=== PATIENT | female | born 1980 | race Caucasian/White ===

== ENCOUNTER 2017-12-13 17:32 | Inpatient (IN) | payer OTHER ==
[~2017-12-13] VITALS: Ht 157.5 cm; Wt 58.5 kg
[~2017-12-13 17:32] MED LIST: ACETAMINOPHEN-1 EAC1 PO; ADULT LOW DOSE81 MG PO; ALLERGY RELIEF10 M3; AMOXICILLIN 50500 MG PO; APIDRA; ATORVASTATIN CA40 MG PO; AUGMENTIN 875875 MG PO; CELEXA 20 MG TA20 M1; CIPROFLOXACIN500 M1 PO; CIPROFLOXACIN500 M3 PO; CRESTOR20 MG PO; DESYREL50 MG; FIORICET 50-321 EACH PO; FLONASE 0.05%50 MCG NASAL; HUMALOG KW100 UNIT/1 SUBQ; IBUPROFEN 800800 M1 PO; IRON325 PO; LANTUS100 UNIT/M SUBQ; LANTUSSOLASTAR; LEVOTHROID150 MC1 PO; LEVOTHYROXINE0.2 M1; LOPRESSOR25 PO; NITROGLYCERIN0.4 MG SUBLING; PENICILLIN V P500 MG; PERCOCET; PERCOCET 5-3251 EACH PO; PRAVACHOL40 MG; PRINIVIL10 MG; PRINIVIL40 MG PO; TRAMADOL 50 MG50 MG PO; TRAZODONE 150150 M1 PO; TRAZODONE HCL100 MG PO; ZANAFLEX4 MG PO; ZANTAC 150MG T150 MG PO; ZOFRAN4 MG PO; ZOLOFT 50 MG TA50 M1 PO
[2017-12-13 17:44] VITALS: BP 168/94
[2017-12-13 18:03] LABS: ABSOLUTE BASOPHILS 0.1 thou/uL (0.0-0.2); ABSOLUTE LYMPHOCYTES 2.1 thou/uL (0.8-5.3); ABSOLUTE MONOCYTES 0.6 thou/uL (0.0-1.2); ABSOLUTE NEUTROPHILS 12.1 thou/uL (1.6-8.1); BASOPHILS 0.5 %; EOSINOPHILS 0.3 %; HEMATOCRIT 45.6 % (37.0-47.0); HEMOGLOBIN 14.7 gm/dL (12.0-15.0); LYMPHOCYTES 13.8 %; MCH 27.5 pg (26.0-34.0); MCHC 32.2 g/dL (28.0-37.0); MCV 85.2 fL (80.0-100.0); MONOCYTES 4.1 %; MPV 9.1 fl. (7.2-11.1); NUCLEATED RBCS 0 /100WBC; PLATELET COUNT* 456 thou/uL (150-400); POLYS 81.3 %; RBC 5.35 mil/uL (4.20-5.00); RDW-CV 16.3 % (10.5-14.5); WBC 14.9 thou/uL (4.0-11.0)
[2017-12-13 18:20] LABS: BUN 20 mg/dL (7-18); CALCIUM 9.2 mg/dL (8.5-10.1); CHLORIDE 88 mmol/L (98-107); CREATININE 1.4 mg/dL (0.6-1.3); POTASSIUM 4.8 mmol/L (3.5-5.1); SODIUM 124 mmol/L (136-145)
[2017-12-13 18:31] LABS: ALBUMIN 3.8 g/dL (3.4-5.0); ALKALINE PHOSPHATASE 281 U/L (46-116); TOTAL BILIRUBIN 0.5 mg/dL (<0.1-1.0); TOTAL PROTEIN 9.7 g/dL (6.4-8.2); TROPONIN-I LEVEL <0.06 ng/mL (<0.06)
[2017-12-13 18:35] LABS: ANION GAP 30 mmol/L (7-16)
[2017-12-13 18:39] LABS: CO2 6 mmol/L (21-32); GLUCOSE 585 mg/dL (70-99)
[2017-12-13 18:49] LABS: SGOT 21 U/L (15-37)
[2017-12-13 18:51] LABS: SGPT 11 U/L (30-65)
[2017-12-13 18:54] LABS: BE -24.7 mmol/L (-2 to +3)
[2017-12-13 18:55] LABS: PCO2 < 17.0 mmHg (35.0-45.0); PO2 149.4 mmHg (75.0-100.0)
[2017-12-13 18:56] LABS: HCO3 3.1 mmol/L (22.0-26.0)
[2017-12-13 21:36] VITALS: BP 131/92
[2017-12-13 22:00] VITALS: BP 148/94
[2017-12-13 22:30] VITALS: BP 158/94
[2017-12-13 22:34] LABS: ALBUMIN 2.9 g/dL (3.4-5.0); CALCIUM 7.6 mg/dL (8.5-10.1); CREATININE 1.1 mg/dL (0.6-1.3); MAGNESIUM 1.5 mg/dL (1.8-2.4); PHOSPHORUS* 2.7 mg/dL (2.5-4.9); POTASSIUM 3.7 mmol/L (3.5-5.1)
[2017-12-13 23:00] VITALS: BP 145/93
[2017-12-14] VITALS (23 sets, daily range): BP systolic 108–146; BP diastolic 65–91
[2017-12-14 02:24] LABS: ALBUMIN 2.8 g/dL (3.4-5.0); CALCIUM 7.6 mg/dL (8.5-10.1); CREATININE 1.1 mg/dL (0.6-1.3); MAGNESIUM 1.6 mg/dL (1.8-2.4); POTASSIUM 3.5 mmol/L (3.5-5.1)
[2017-12-14 06:30] LABS: ALBUMIN 2.7 g/dL (3.4-5.0); CALCIUM 7.6 mg/dL (8.5-10.1); MAGNESIUM 1.6 mg/dL (1.8-2.4); PHOSPHORUS* 1.7 mg/dL (2.5-4.9); POTASSIUM 3.3 mmol/L (3.5-5.1)
[2017-12-14 10:27] LABS: ALBUMIN 2.5 g/dL (3.4-5.0); CALCIUM 7.5 mg/dL (8.5-10.1); MAGNESIUM 1.5 mg/dL (1.8-2.4)
[2017-12-14 10:32] LABS: POTASSIUM 4.3 mmol/L (3.5-5.1)
[2017-12-14 13:49] LABS: URINE BILIRUBIN NEGATIVE (Negative); URINE BLOOD TRACE (Negative); URINE CLARITY CLEAR; URINE COLOR YELLOW; URINE GLUCOSE-RANDOM 2+ (Negative); URINE KETONES 1+ (Negative); URINE NITRITE-REFLEX NEGATIVE (Negative); URINE PROTEIN 1+ (Negative); URINE SPECIFIC GRAVITY 1.015 (1.005-1.030); URINE UROBILINOGEN 0.2 E.U./dl (0.2-1.0)
[2017-12-14 13:50] LABS: URINE LEUKOCYTES-REFLEX 2+ (Negative)
[2017-12-14 14:09] LABS: SQUAMOUS 4-10 Moderate /LPF (0-3)
[2017-12-14 14:10] LABS: BACTERIA-REFLEX 1-9 Few /HPF (None Seen); CASTS None Seen /LPF (None Seen); CRYSTALS None Seen /LPF (None Seen); URINE RBC 3-10 Few /HPF (0-2)
--- NOTE | 2017-12-14 14:51 | EKG ---
[place] [address] ELECTROCARDIOGRAM REPORT Name: ERASTO CULVER Room: [address] ADM IN .R.#: [id number] Admission: 12/13/17 Attend Phys: Jasson Rosario MD Discharge: Date of : 80 Report #: [id number] THIS REPORT FOR: //name// [facility] ED Test Date: 2017-12-13 Test Time: 17:45:20 Pat Name: ERASTO CULVER Department: Room: [facility] Gender: F Manager Voice: TERESA : 1980 Requested By: Jaye Moore Order Number: [id number] MD: Everett Morales Measurements Intervals Eros Rate: 136 P: 72 VT: 143 QRS: -16 QRSD: 78 T: QT: 305 QTc: 459 Interpretive Statements Sinus tachycardia LAE, consider biatrial enlargement Borderline left axis deviation Anteroseptal infarct, old Compared to ECG 10/17/2016 22:03:41 Sinus rhythm no longer present Myocardial infarct finding still present Electronically Signed On 12-14-2017 14:51:37 CDT by Everett Morales [email or web address] <ELECTRONICALLY SIGNED> By: Everett Morales MD, FAC 12/14/17 1451 1745 1745 Everett Morales MD, FAC /EPI
[2017-12-14 15:59] LABS: ALBUMIN 2.4 g/dL (3.4-5.0); CALCIUM 7.6 mg/dL (8.5-10.1); CREATININE 0.9 mg/dL (0.6-1.3); PHOSPHORUS* 1.3 mg/dL (2.5-4.9); POTASSIUM 3.6 mmol/L (3.5-5.1)
[2017-12-14 20:47] LABS: ALBUMIN 2.3 g/dL (3.4-5.0); ALKALINE PHOSPHATASE 174 U/L (46-116); ANION GAP 11 mmol/L (7-16); BUN 8 mg/dL (7-18); CALCIUM 7.5 mg/dL (8.5-10.1); CHLORIDE 110 mmol/L (98-107); CO2 19 mmol/L (21-32); CREATININE 1.1 mg/dL (0.6-1.3); GLUCOSE 105 mg/dL (70-99); POTASSIUM 3.1 mmol/L (3.5-5.1); SGOT 24 U/L (15-37); SGPT 14 U/L (30-65); SODIUM 140 mmol/L (136-145); TOTAL BILIRUBIN 0.1 mg/dL (<0.1-1.0); TOTAL PROTEIN 6.3 g/dL (6.4-8.2); TROPONIN-I LEVEL <0.06 ng/mL (<0.06)
[2017-12-15] VITALS (11 sets, daily range): BP systolic 113–140; BP diastolic 62–99
[2017-12-15 03:47] LABS: ABSOLUTE EOSINOPHILS 0.1 thou/uL (0.0-0.7); ABSOLUTE LYMPHOCYTES 1.1 thou/uL (0.8-5.3); ABSOLUTE MONOCYTES 0.4 thou/uL (0.0-1.2); ABSOLUTE NEUTROPHILS 2.9 thou/uL (1.6-8.1); BASOPHILS 0.6 %; EOSINOPHILS 1.5 %; HEMATOCRIT 30.3 % (37.0-47.0); LYMPHOCYTES 24.1 %; MCH 27.8 pg (26.0-34.0); MCHC 33.5 g/dL (28.0-37.0); MCV 82.8 fL (80.0-100.0); MONOCYTES 9.8 %; MPV 8.4 fl. (7.2-11.1); NUCLEATED RBCS 0 /100WBC; RBC 3.65 mil/uL (4.20-5.00); RDW-CV 16.8 % (10.5-14.5); WBC 4.6 thou/uL (4.0-11.0)
[2017-12-15 03:56] LABS: HEMOGLOBIN 10.1 gm/dL (12.0-15.0); PLATELET COUNT* 183 thou/uL (150-400)
[2017-12-15 06:27] LABS: ALBUMIN 2.2 g/dL (3.4-5.0); CALCIUM 7.5 mg/dL (8.5-10.1); CREATININE 0.9 mg/dL (0.6-1.3); TOTAL BILIRUBIN 0.1 mg/dL (<0.1-1.0); TOTAL PROTEIN 5.4 g/dL (6.4-8.2)
[2017-12-15 06:29] LABS: POTASSIUM 4.2 mmol/L (3.5-5.1)
[2017-12-15] MEDS ORDERED: LEVAQUIN 500 M500 M2 PO (12:00)
== END 2017-12-15 12:35 | disposition home or self-care (01) | DRG 638 ==
LOC: M.ERS 17:32 → M.TBA-ER 19:40 → M.ICU 19:40
PROVIDERS: Internal Medicine; Nurse Practitioner Family; ADMIT Internal Medicine
PROC: 02H633Z Insertion of Infusion Device into Right Atrium, Percutaneous Approach (ICD-10-PCS; principal; 2017-12-13)
DX: E10.10 Type 1 diabetes mellitus with ketoacidosis without coma (principal); N39.0 Urinary tract infection, site not specified; E78.5 Hyperlipidemia, unspecified; E03.9 Hypothyroidism, unspecified; F32.9 Major depressive disorder, single episode, unspecified; Z98.891 History of uterine scar from previous surgery; Z90.49 Acquired absence of other specified parts of digestive tract; Z90.710 Acquired absence of both cervix and uterus; Z79.82 Long term (current) use of aspirin; Z79.4 Long term (current) use of insulin; Z79.899 Other long term (current) drug therapy; Z88.2 Allergy status to sulfonamides; Z88.5 Allergy status to narcotic agent; Z88.8 Allergy status to other drugs, medicaments and biological substances; Z82.49 Family history of ischemic heart disease and other diseases of the circulatory system; Z83.3 Family history of diabetes mellitus; Z80.3 Family history of malignant neoplasm of breast

== ENCOUNTER 2018-02-03 11:24 | Inpatient (IN) | payer OTHER ==
[~2018-02-03] VITALS: Ht 157.5 cm; Wt 66.7 kg
[2018-02-03] VITALS (8 sets, daily range): BP systolic 88–157; BP diastolic 58–92
[~2018-02-03 11:24] MED LIST changes: +LEVAQUIN 500 M500 M2 PO
[2018-02-03 11:57] LABS: URINE BILIRUBIN NEGATIVE (Negative); URINE BLOOD NEGATIVE (Negative); URINE CLARITY CLEAR; URINE COLOR YELLOW; URINE GLUCOSE-RANDOM 3+ (Negative); URINE LEUKOCYTES-REFLEX NEGATIVE (Negative); URINE NITRITE-REFLEX NEGATIVE (Negative); URINE PROTEIN TRACE (Negative); URINE UROBILINOGEN 0.2 E.U./dl (0.2-1.0)
[2018-02-03 12:01] LABS: ACETEST (KETONE CONFIRMATORY) Large (Negative); URINE KETONES 3+ (Negative)
[2018-02-03 12:01] LABS: PCO2 21.2 mmHg (35.0-45.0); PO2 115.7 mmHg (75.0-100.0)
[2018-02-03 12:03] LABS: HCO3 9.6 mmol/L (22.0-26.0); pH 7.276 (7.340-7.450)
[2018-02-03 12:18] LABS: ABSOLUTE LYMPHOCYTES 1.3 thou/uL (0.8-5.3); ABSOLUTE MONOCYTES 0.4 thou/uL (0.0-1.2); ABSOLUTE NEUTROPHILS 4.6 thou/uL (1.6-8.1); BASOPHILS 0.4 %; EOSINOPHILS 0.5 %; HEMATOCRIT 41.2 % (37.0-47.0); HEMOGLOBIN 13.2 gm/dL (12.0-15.0); LYMPHOCYTES 20.2 %; MCH 28.3 pg (26.0-34.0); MCV 88.4 fL (80.0-100.0); MONOCYTES 5.7 %; MPV 9.3 fl. (7.2-11.1); NUCLEATED RBCS 0 /100WBC; PLATELET COUNT* 320 thou/uL (150-400); POLYS 73.2 %; RBC 4.66 mil/uL (4.20-5.00); RDW-CV 14.2 % (10.5-14.5); WBC 6.3 thou/uL (4.0-11.0)
[2018-02-03 12:49] LABS: CALCIUM 8.9 mg/dL (8.5-10.1); CREATININE 1.3 mg/dL (0.6-1.3); POTASSIUM 4.1 mmol/L (3.5-5.1)
[2018-02-03 13:27] LABS: ALBUMIN 3.5 g/dL (3.4-5.0); MAGNESIUM 1.8 mg/dL (1.8-2.4); TOTAL BILIRUBIN 0.5 mg/dL (<0.1-1.0); TOTAL PROTEIN 8.8 g/dL (6.4-8.2)
[2018-02-03 16:23] LABS: ALBUMIN 3.2 g/dL (3.4-5.0); CALCIUM 8.7 mg/dL (8.5-10.1); CREATININE 1.1 mg/dL (0.6-1.3); MAGNESIUM 1.7 mg/dL (1.8-2.4); POTASSIUM 3.3 mmol/L (3.5-5.1)
--- NOTE | 2018-02-03 17:45 | NUR ---
PT ARRIVED TO ICU THIS AFTERNOON. VSS. AFEBRILE. ALERT AND ORIENTED X4. PT DENIES PAIN AND NAUSEA. GOALS FOR TODAY INCLUDE WEANING INSULIN GTT AND MAINTAINING STABLE VS.
[2018-02-03 21:51] LABS: ALBUMIN 3.1 g/dL (3.4-5.0); CALCIUM 8.2 mg/dL (8.5-10.1); CREATININE 0.9 mg/dL (0.6-1.3); MAGNESIUM 1.5 mg/dL (1.8-2.4); PHOSPHORUS* 2.2 mg/dL (2.5-4.9); POTASSIUM 3.8 mmol/L (3.5-5.1)
[2018-02-04] VITALS (12 sets, daily range): BP systolic 86–137; BP diastolic 44–84
[2018-02-04 04:29] LABS: HEMATOCRIT 35.2 % (37.0-47.0); HEMOGLOBIN 11.9 gm/dL (12.0-15.0); MCH 28.6 pg (26.0-34.0); MCHC 33.7 g/dL (28.0-37.0); MCV 84.8 fL (80.0-100.0); MPV 8.1 fl. (7.2-11.1); RBC 4.15 mil/uL (4.20-5.00); RDW-CV 14.3 % (10.5-14.5); WBC 5.6 thou/uL (4.0-11.0)
[2018-02-04 05:32] LABS: CREATININE 0.9 mg/dL (0.6-1.3); POTASSIUM 3.9 mmol/L (3.5-5.1)
[2018-02-04 05:33] LABS: ALBUMIN 2.9 g/dL (3.4-5.0); CALCIUM 8.4 mg/dL (8.5-10.1); MAGNESIUM 2.3 mg/dL (1.8-2.4); PHOSPHORUS* 2.5 mg/dL (2.5-4.9); TOTAL BILIRUBIN 0.1 mg/dL (<0.1-1.0); TOTAL PROTEIN 7.3 g/dL (6.4-8.2)
[2018-02-04 06:04] LABS: BE -6.2 mmol/L (-2 to +3); HCO3 19.6 mmol/L (22.0-26.0); PCO2 39.7 mmHg (35.0-45.0); PO2 99.5 mmHg (75.0-100.0); pH 7.311 (7.340-7.450)
--- NOTE | 2018-02-04 07:35 | NUR ---
Pt's BG mid 200s toward beginning of shift. Insulin gtt increased gradually, then decreased gradually throughout shift. Latest BG 106 with insulin gtt infusing at 1 unit/hour. Medicated twice overnight for c/o of pain to lower back, rating 8/10. Reports complete pain relief afterwards. Otherwise no complaints. VSS throughout most of shift, though BP 80s/40s this am. Pt asymptomatic. Pt hoping to be off insulin gtt soon and be able to eat. Will continue to monitor.
--- NOTE | 2018-02-04 10:52 | NUR ---
ASSUMED PT CARE 0730. PT A/O X'S 4. BP 80'S/40'S. PT SAT UP AND RECHECKED BP AND IT WAS SYSTOLIC 108. HR 70'S. HELD METOPROLOL. WILL CONTINUE TO MONITOR. DISCUSSED WITH PT PLAN OF CARE AND PT AGREED. PT AFEBRILE. PT STATES SHE WANTS TO EAT. PT GIVEN ORAL FLUIDS AND CRACKERS. PER DR, PT TO EAT BREAKFAST. PT ATE 80% OF BREAKFAST. PT C/O OF LOWER BACK PAIN. PT REPORTS SHE HAS MIDDLE BACK PAIN AT HOME. PT FIRST GIVEN PO HYDROCODONE. PT RATED PAIN 7/10 PRIOR TO MEDICATION AND AT REASSESSMENT. PT THEN GIVEN PRN IV FENTANYL. DKA PROTOCOL DC'D PER DR DANIELS. PT UP SELF TO COMMODE. PT VOIDED. WILL CONTINUE PLAN OF CARE.
--- NOTE | 2018-02-04 11:32 | NUR ---
INTERDISCIPLINARY ROUNDS: PT.IS TELE STATUS NOW. SHE WAS ALERT ND ORIENTED. MOM AND SON AT BEDSIDE. LIVES WITH HER AND CHILDREN. MOTHER IS VERY SUPPORTIVE WELL. PT.WORKS OUTSIDE THE HOME. SHE SAID AFTER 60 DAYS OF EMPLOYMENT SHE SHOULD BE ABLE TO GET INSURANCE. SHE HAS BEEN AT HER JOB FOR ABOUT 30 DAYS. DOES NOT HAVE INSURANCE AT HIS JOB. THEY DO NOT QUALIFY FOR MEDICAID. SHE SAID THEY MAKE TOO MUCH MONEY. THEIR CHILDREN, AGES 14 AND 5, ARE ON MEDICAID. PT. SAID SHE HAS A GLUCOMETER AND TRYS TO CHECK HER BLOOD SUGAR DAILY. SHE REPORTED SHE HADN'T CHECKED IT IN A WEEK IN THE ER. SHE GETS HER DIABETIC SUPPLIES,REG.AND NPH INSULIN AT [facility]. STRESSED IMPORTANCE OF KEEPING GLUCOSE IN CONTROL. SHE SEES YAHAIRA CHEUNG AT [facility]. CM WILL ASSIST NEEDED.
--- NOTE | 2018-02-04 14:08 | NUR ---
PT TRANSFERRED TO ROOM 200 FROM ICU VIA WHEELCHAIR AT APPROXIMATELY 1320. REPORT RECEIVED FROM TREVOR MASTERS. THIS RN AGREES WITH PREVIOUS OPERATOR GROUND BASED AIR DEFENCE. PT A&0X4, DENIES ANY PAIN OR SHORTNESS OF BREATH AT THIS TIME. PT TRACING SR ON THE INDUSTRIAL CONVEYOR BELT REPAIRER. ON RA SAT UPPER 90'S. IVF. PT UP AD PAVEL IN ROOM. PT DENIES ANY NEEDS OR CONCERNS AT THIS TIME. MEDICATIONS PER MAR. PT REPOSITIONS SELF. HOURLY ROUNDING OBSERVED. BED IN LOW POSITION. CALL LIGHT WITHIN REACH. WILL CONTINUE PLAN OF CARE.
--- NOTE | 2018-02-04 17:17 | NUR ---
NO ACUTE CHANGES THROUGHOUT AFTERNOON. PT COMPLAINED OF PAIN TO LOWER BACK-TREATED WITH PRN HYDROCODONE WITH RELIEF. FAMILY AT BEDSIDE THIS AFTERNOON. PT CONTINUES TO TRACE SR ON THE ENGRAVER HAND HARD METALS. ON RA SAT UPPER 90'S. DENIES ANY SHORTNESS OF BREATH. IVF. PT UP AD PAVEL IN ROOM. BLOOD SUGAR 238 AT DINNER-10 UNITS INSULIN GIVEN PER SLIDING SCALE. REFER TO EMAR. PT PROGRESSING TOWARDS GOALS. PT REPOSITIONS SELF. HOURLY ROUNDING OBSERVED. BED IN LOW POSITION. CALL LIGHT WITHIN REACH. WILL CONTINUE PLAN OF CARE.
[2018-02-05] VITALS: BP 103/62
[2018-02-05 04:00] VITALS: BP 107/56
--- NOTE | 2018-02-05 04:24 | NUR ---
Assumed care of patient at 1930. Patient slept well throughout the night. Full assessment completed and documented; hourly rounding performed for patient's safety. Lower back pain controlled with PRN medications. Patient is A&O x4; up ad reece in room. SR noted on telemetry. All VSS. IVL infusing. Patient is progressing well toward goals. Call light within reach at all times. Will continue to monitor.
[2018-02-05 05:09] LABS: HEMATOCRIT 31.5 % (37.0-47.0); HEMOGLOBIN 10.6 gm/dL (12.0-15.0); MCH 28.7 pg (26.0-34.0); MCHC 33.6 g/dL (28.0-37.0); MCV 85.3 fL (80.0-100.0); RBC 3.7 mil/uL (4.20-5.00); RDW-CV 14.8 % (10.5-14.5); WBC 4.2 thou/uL (4.0-11.0)
[2018-02-05 06:04] LABS: ALBUMIN 2.4 g/dL (3.4-5.0); CALCIUM 7.7 mg/dL (8.5-10.1); CREATININE 0.7 mg/dL (0.6-1.3); MAGNESIUM 1.6 mg/dL (1.8-2.4); POTASSIUM 4.1 mmol/L (3.5-5.1); TOTAL BILIRUBIN 0.2 mg/dL (<0.1-1.0); TOTAL PROTEIN 5.8 g/dL (6.4-8.2)
[2018-02-05 08:00] VITALS: BP 119/71
--- NOTE | 2018-02-05 10:37 | NUR ---
ASSUMED CARE OF PT AT 0730. PT RESTING IN BED WAITING FOR BREAKFAST. PT FAMILY AT BEDSIDE. A&0X4, DENIES ANY PAIN OR SHORTNESS OF BREATH AT THIS TIME. PT BLOOD GLUCOSE 412 THIS AM- 20 UNITS SSI GIVEN PER EMAR. PT TRACING SR ON THE MEDICAL DELIVERY TECHNICIAN. ON RA SAT UPPER 90'S. IVF. PT UP AD PAVEL IN ROOM. PT GOAL FOR TODAY IS PAIN MGMT, MAINTAIN BLOOD GLUCOSE BELOW 200, INCREASE ACTIVITY AND REPLACE MAGNESIUM PER ELECTROLYTE PROTOCOL. AM ASSESSMENT CHARTED. MEDICATIONS PER JUN. PT REPOSITIONS SELF. HOURLY ROUNDING OBSERVED. BED IN LOW POSITION. CALL LIGHT WITHIN REACH. WILL CONTINUE PLAN OF CARE.
[2018-02-05 12:04] VITALS: BP 129/80
--- NOTE | 2018-02-05 16:42 | NUR ---
NO ACUTE CHANGES THROUGHOUT SHIFT. REFER TO CHARTING. PT COMPLAINED OF PAIN TO BACK-TREATED WITH PRN HYDROCODONE WITH PARTIAL RELIEF, TREATED WITH PRN FENTANYL WITH COMPLETE RELIEF. PT PROGRESSING TOWARDS GOALS. BLOOD SUGARS BETTER THIS AFTERNOON. DR WATKINS HERE TO SEE PT-ORDERS RECEIVED FOR LONG ACTING INSULING STARTING TONIGHT. PT CONTINUES TO TRACE SR ON THE DIRECTOR TRADE. ON RA SAT UPPER 90'S. PT UP AD PAVEL IN ROOM. IVF. MAGNESIUM BEING REPLACED PER ELECTROLYTE PROTOCOL. MEDICATIONS PER JUN. PT REPOSITIONS SELF. HOURLY ROUNDING OBSERVED. BED IN LOW POSITION. CALL LIGHT WITHIN REACH. WILL CONTINUE PLAN OF CARE.
[2018-02-05 17:00] VITALS: BP 120/65
[2018-02-05 18:54] LABS: URINE BILIRUBIN NEGATIVE (Negative); URINE BLOOD NEGATIVE (Negative); URINE CLARITY CLEAR; URINE COLOR YELLOW; URINE GLUCOSE-RANDOM 3+ (Negative); URINE KETONES NEGATIVE (Negative); URINE LEUKOCYTES-REFLEX NEGATIVE (Negative); URINE NITRITE-REFLEX NEGATIVE (Negative); URINE PROTEIN NEGATIVE (Negative); URINE UROBILINOGEN 0.2 E.U./dl (0.2-1.0)
[2018-02-05 20:14] VITALS: BP 153/92
[2018-02-06 02:02] VITALS: BP 113/60
--- NOTE | 2018-02-06 02:58 | NUR ---
RECEIVED REPORT AND ASSUMED CARE AT 1900. VSS. CARDIAC MONITORING IN PLACE. ASSESSMENT COMPLETED CHARTED. DISCUSSED PLAN OF CARE WITH PT, VERBALIZED UNDERSTANDING. MEDICATION ADMIN PER EMAR. PT REPORTED LOWER BACK PAIN. PRN MEDICATIN ADMIN PER ORDERS. PT UP AD PAVEL IN ROOM, ON RA. BED LOCKED IN LOWEST POSITION, CALL LIGHT WITHIN REACH. NURSING WILL CONTINUE TO MONITOR
[2018-02-06 04:40] VITALS: BP 114/59
[2018-02-06 04:49] LABS: HEMATOCRIT 28.2 % (37.0-47.0); HEMOGLOBIN 9.4 gm/dL (12.0-15.0); MCH 28.3 pg (26.0-34.0); MCHC 33.3 g/dL (28.0-37.0); RBC 3.31 mil/uL (4.20-5.00); RDW-CV 14.6 % (10.5-14.5); WBC 3.3 thou/uL (4.0-11.0)
[2018-02-06 05:01] LABS: CALCIUM 7.6 mg/dL (8.5-10.1); CREATININE 0.6 mg/dL (0.6-1.3); MAGNESIUM 1.5 mg/dL (1.8-2.4); POTASSIUM 3.7 mmol/L (3.5-5.1)
--- NOTE | 2018-02-06 05:50 | NUR ---
ASSUMED CARE APROX 0500. AGREE WITH PREVIOUS NURSE ASSESSMENT.
[2018-02-06 08:16] VITALS: BP 122/71
[2018-02-06 12:00] VITALS: BP 157/84
[2018-02-06 16:00] VITALS: BP 145/79
--- NOTE | 2018-02-06 18:22 | NUR ---
ASSUMED CARE OF PT AT 0730.PT REMAINS A&O X4 CALM AND COOPERATIVE. PT VSS ON ROOM AIR AND TRACING SR ON THE MONITOR. PT C/O BACK PAIN CONTROLLED WITH PRN MEDS PER JUN. PT UP AD PAVEL AND HAS A GOOD APPETITE, EATING GREATER THAN 75% OF ALL MEALS TODAY. HOURLY ROUNDING COMPLETED FOR PT COMFORT AND SAFTEY. NURSING WILL CONTINUE TO MONITOR.
[2018-02-06 19:40] VITALS: BP 120/74
[2018-02-07] VITALS: BP 126/84
[2018-02-07 00:17] VITALS: BP 145/85
[2018-02-07 04:00] VITALS: BP 128/72
--- NOTE | 2018-02-07 04:12 | NUR ---
END SHIFT: PT RESTED WELL. NO COMPLAINTS. NO PAIN. TOLERATING INCREASE IN INSULIN WELL. PT IS UP WALKING HALLS. NSR ON MONITOR. AWAITING D/C TODAY. ASSESSMENT UNCHANGED. VSS. SAFETY PRECAUTIONS IN PLACE. CALL LIGHT IN REACH. PERFORMED HOURLY ROUNDING. WILL CONT TO MONITOR.
[2018-02-07 04:25] LABS: HEMATOCRIT 31.5 % (37.0-47.0); HEMOGLOBIN 10.4 gm/dL (12.0-15.0); MCH 28.1 pg (26.0-34.0); MCHC 33.2 g/dL (28.0-37.0); MCV 84.6 fL (80.0-100.0); RBC 3.72 mil/uL (4.20-5.00); RDW-CV 14.8 % (10.5-14.5); WBC 3.5 thou/uL (4.0-11.0)
[2018-02-07 04:35] LABS: CALCIUM 8.2 mg/dL (8.5-10.1); CREATININE 0.6 mg/dL (0.6-1.3); MAGNESIUM 1.8 mg/dL (1.8-2.4); POTASSIUM 3.5 mmol/L (3.5-5.1)
[2018-02-07 07:20] VITALS: BP 125/71
[2018-02-07] MEDS ORDERED: LEVOTHYROXINE150 MCG PO (09:26)
[2018-02-07] MEDS ORDERED: HUMULINR100 SUBQ (10:01)
[2018-02-07] MEDS ORDERED: HUMULIN N100 UNIT/1 SUBQ (10:23)
[2018-02-07 11:47] VITALS: BP 126/73
--- NOTE | 2018-02-07 12:02 | NUR ---
Dr to switch Pt back to NPH today, anticipate dc tomorrow.
--- NOTE | 2018-02-07 12:15 | NUR ---
Nutrition: Consult received for "uncontrolled DM." Pt was sitting in chair during visit. Likely discharging home today. Has Had IDDM x25 yrs. Eating >75% of meals, CHO count diet. Wt is stable 147#. Pt denied any needs, politely refused DM education. No other nutrition interventions needed today. Low risk.
--- NOTE | 2018-02-07 19:33 | NUR ---
PATIENT PROGRESSING TOWARDS GOALS. TOLERATING DIET WELL WITHOUT NAUSEA OR VOMITING. ADJUSTED INSULIN BASED ON PATIENTS HOME REGIMINE. UP AD PAVEL IN ROOM WITH BATHROOM PRIVILEDGES. HER GAIT IS STEADY. REPLACING MAG/K PER PROTOCOL. PLANNING FOR DC TOMORROW IF GLUCOSE STABLE. HOURLY ROUNDING CHARTED. CALL LIGHT WITHIN REACH. WILL CONTINUE TO MONITOR.
[2018-02-07 19:35] VITALS: BP 124/70
[2018-02-07 23:10] LABS: GLYCOHEMOGLOBIN (HGB A1C) 15.2 % (4.8-5.6)
[2018-02-08] VITALS: BP 138/70
--- NOTE | 2018-02-08 04:34 | NUR ---
END SHIFT: PT RESTED WELL. C/O PAIN IN BILAT LOWER LEGS AND FEET RELIEVED WITH PAIN MEDICATION. ASSESSMENT UNCHANGED. VSS. AWAITING DC HOME TODAY. PROGRESSING TOWARDS GOALS. SAFETY PRECAUTIONS IN PLACE. CALL LIGHT IN REACH. PERFORMED HOURLY ROUNDING. WILL CONT TO MONITOR.
--- NOTE | 2018-02-08 06:52 | NUR ---
ANOTHER DOSE OF TYLENOL GIVEN AT 0600 THIS AM FOR TEMPT OF 101. PT FEER SEEMS TO COME AND GO. IV ABX HANGED, IV FLID INFUSING AT 150 /HR. PT SKIN IS WARM TO TOUVH. HR IS DOWN TO THE 90S.
[2018-02-08 08:00] VITALS: BP 116/60
--- NOTE | 2018-02-08 11:20 | NUR ---
ASSUMED CARE OF PATIENT THIS AM AT 0730. PATIENT IS ALERT AND ORIENTED X 4. SHE DENIES PAIN AND DISCOMFORT. FSBS MONITORED AND INSULIN GIVEN PER ORDER. PATIENT IS TAKING HER DIET WELL. PATIENT ANTICIPATES DISCHARGE WHEN DR ROUNDS.
[2018-02-08 11:37] VITALS: BP 172/54
[2018-02-08] MEDS ORDERED: HUMULIN N100 UNIT/1 SUBQ (12:06)
[2018-02-08] MEDS ORDERED: HUMALOG KW100 UNIT/1 SUBQ (12:06)
[2018-02-08 13:50] VITALS: BP 116/60
== END 2018-02-08 15:00 | disposition home or self-care (01) | DRG 639 ==
LOC: M.ERS 11:24 → M.ICU 13:51 → M.TBA-ER 13:51 → M.ICU 15:35 → M.2W 02-04 13:08
PROVIDERS: Family Medicine; Personal Emergency Response Attendant; ADMIT Internal Medicine
DX: E10.10 Type 1 diabetes mellitus with ketoacidosis without coma (principal); E03.9 Hypothyroidism, unspecified; E78.5 Hyperlipidemia, unspecified; F32.9 Major depressive disorder, single episode, unspecified; E87.8 Other disorders of electrolyte and fluid balance, not elsewhere classified; E83.42 Hypomagnesemia; Z98.891 History of uterine scar from previous surgery; Z90.49 Acquired absence of other specified parts of digestive tract; Z90.710 Acquired absence of both cervix and uterus; Z79.4 Long term (current) use of insulin; Z79.899 Other long term (current) drug therapy; Z88.2 Allergy status to sulfonamides; Z88.5 Allergy status to narcotic agent; Z88.8 Allergy status to other drugs, medicaments and biological substances; Z82.49 Family history of ischemic heart disease and other diseases of the circulatory system; Z83.3 Family history of diabetes mellitus; Z80.3 Family history of malignant neoplasm of breast; Z23 Encounter for immunization

== ENCOUNTER 2019-01-16 16:00 | Emergency (ER) | payer OTHER ==
[~2019-01-16] VITALS: Ht 157.5 cm; Wt 66.7 kg
[~2019-01-16 16:00] MED LIST changes: +HUMULIN N100 UNIT/1 SUBQ; +HUMULINR100 SUBQ; +LEVOTHYROXINE150 MCG PO
[2019-01-16 17:34] LABS: ABSOLUTE EOSINOPHILS 0.1 thou/uL (0.0-0.7); ABSOLUTE LYMPHOCYTES 1.7 thou/uL (0.8-5.3); ABSOLUTE MONOCYTES 0.6 thou/uL (0.0-1.2); ABSOLUTE NEUTROPHILS 3.9 thou/uL (1.6-8.1); BASOPHILS 0.7 %; EOSINOPHILS 1.4 %; HEMATOCRIT 36.1 % (37.0-47.0); HEMOGLOBIN 11.8 gm/dL (12.0-15.0); MCH 25.5 pg (26.0-34.0); MCHC 32.8 g/dL (28.0-37.0); MCV 77.7 fL (80.0-100.0); MONOCYTES 9.5 %; MPV 8.2 fl. (7.2-11.1); NUCLEATED RBCS 0 /100WBC; PLATELET COUNT* 314 thou/uL (150-400); POLYS 61.4 %; RBC 4.64 mil/uL (4.20-5.00); RDW-CV 14.1 % (10.5-14.5); WBC 6.4 thou/uL (4.0-11.0)
[2019-01-16 17:43] LABS: ANION GAP 21 mmol/L (7-16); BUN 20 mg/dL (7-18); CALCIUM 9.6 mg/dL (8.5-10.1); CHLORIDE 91 mmol/L (98-107); CO2 17 mmol/L (21-32); GLUCOSE 383 mg/dL (70-99); POTASSIUM 4.6 mmol/L (3.5-5.1); SODIUM 129 mmol/L (136-145)
[2019-01-16] MEDS ORDERED: IMDUR 30 MG TAB30 M1 PO (17:53)
[2019-01-16] MEDS ORDERED: NEURONTIN 300300 M1 PO (17:53)
[2019-01-16] MEDS ORDERED: LEVEMIR FL100 UNIT/2 SUBQ (17:54)
[2019-01-16 17:56] LABS: TROPONIN-I LEVEL <0.06 ng/mL (<0.06)
[2019-01-16 18:02] LABS: URINE BILIRUBIN NEGATIVE (Negative); URINE BLOOD TRACE (Negative); URINE CLARITY CLEAR; URINE COLOR YELLOW; URINE GLUCOSE-RANDOM 2+ (Negative); URINE LEUKOCYTES-REFLEX NEGATIVE (Negative); URINE NITRITE-REFLEX NEGATIVE (Negative); URINE PROTEIN 2+ (Negative); URINE UROBILINOGEN 0.2 E.U./dl (0.2-1.0)
[2019-01-16 18:03] LABS: URINE KETONES 3+ (Negative)
[2019-01-16 18:13] LABS: BACTERIA-REFLEX >30 Many /HPF (None Seen); SQUAMOUS >10 Many /LPF (0-3)
[2019-01-16 18:14] LABS: URINE RBC 0-2 Rare /HPF (0-2)
[2019-01-16 18:15] LABS: CASTS None Seen /LPF (None Seen); CRYSTALS None Seen /LPF (None Seen); MUCUS None Seen strn/LPF (None Seen); YEAST-REFLEX Present (None Seen)
[2019-01-16 18:16] LABS: URINE WBC-REFLEX 6-15 Few /HPF (0-5)
[2019-01-16 19:27] LABS: BE -9.3 mmol/L (-2 to +3); PO2 98.4 mmHg (75.0-100.0); pH 7.354 (7.340-7.450)
[2019-01-16] MEDS ORDERED: ONDANSETRON HCL4 M2 PO (19:39)
[2019-01-16] MEDS ORDERED: DIFLUCAN150 M1 PO (19:39)
[2019-01-16] MEDS ORDERED: NORCO 5-325 TA1 EAC1 PO (20:00)
[2019-01-16 20:17] VITALS: BP 125/85
--- NOTE | 2019-01-17 09:31 | EKG ---
[place] [address] ELECTROCARDIOGRAM REPORT Name: ERASTO CULVER Room: [facility]#: [id number] Admission: 01/16/19 Attend Phys: Discharge: 01/16/19 Date of : 80 Report #: [id number] THIS REPORT FOR: //name// [facility] ED Test Date: 2019-01-16 Test Time: 16:14:06 Pat Name: ERASTO CULVER Department: Room: Gender: F Fur Buyer: JOSÉ LUIS : 1980 Requested By: Sara Stockton Order Number: [id number] MD: Everett Morales Measurements Intervals [place] Rate: 111 P: 49 NH: 136 QRS: -32 QRSD: 85 T: 20 QT: 322 QTc: 438 Interpretive Statements Sinus tachycardia Left axis deviation Abnormal R-wave progression, late transition Compared to ECG 12/13/2017 17:45:20 Changes noted Electronically Signed On 01-17-2019 9:31:45 CDT by Everett Morales [email or web address] <ELECTRONICALLY SIGNED> By: Everett Morales MD, [facility] 01/17/19 0931 1614 1614 Everett Morales MD, [facility] /EPI
== END 2019-01-16 20:18 | disposition home or self-care (01) ==
LOC: M.ERS 16:00
PROVIDERS: Nurse Practitioner Family
DX: E10.65 Type 1 diabetes mellitus with hyperglycemia (principal); N39.0 Urinary tract infection, site not specified; R07.89 Other chest pain; E78.5 Hyperlipidemia, unspecified; E03.9 Hypothyroidism, unspecified; F32.9 Major depressive disorder, single episode, unspecified; Z95.5 Presence of coronary angioplasty implant and graft; Z88.2 Allergy status to sulfonamides; Z98.890 Other specified postprocedural states; Z90.49 Acquired absence of other specified parts of digestive tract; Z90.710 Acquired absence of both cervix and uterus; Z88.1 Allergy status to other antibiotic agents; Z88.8 Allergy status to other drugs, medicaments and biological substances

== ENCOUNTER 2019-05-08 11:03 | Inpatient (IN) | payer OTHER ==
[~2019-05-08] VITALS: Ht 157.5 cm; Wt 66.7 kg
[2019-05-08] VITALS (12 sets, daily range): BP systolic 117–144; BP diastolic 76–89
--- NOTE | ~2019-05-08 | CON ---
[address] [address] CONSULTATION Name: ERASTO CULVER Room: [address] IN M.R.#: [id number] Admission: 05/08/19 Attend Phys: Glendy Lang Discharge: Date of : 80 Report #: [id number] THIS REPORT FOR: //name// CC: Robbin Shoemaker DO Lisa Palmer DICTATED BY: Tawana Jones [facility] Please note at the time of this dictation, the patient was seen and physically examined by myself. HISTORY OF PRESENT ILLNESS: This is a 39-year-old female presented to the Emergency Room with increasing generalized weakness, nausea and increase in urinary frequency. When the patient was admitted to the ER, she had a blood sugar greater than 700 and she had some metabolic acidosis noted at that time. She was placed on an insulin drip to help control her diabetes. The patient states that she has had ongoing nausea, but no vomiting. She does have worsening of her acid reflux as well that she has noted particularly after eating when the nausea increases and she will have some epigastric discomfort with all of this. She states she has never had an upper scope done and that her blood sugars have been running high. She does not recall what her last hemoglobin A1c is. The patient states bowels move daily to every other day. They are soft and formed. She has not noticed any bright red blood or any melanotic stool. ALLERGIES: SULFA, MORPHINE, NAPROXEN, VANCOMYCIN, AND HYDROMORPHONE. MEDICATIONS: From home include Lipitor, aspirin and Humulin 10 units b.i.d., Imdur, Neurontin, Levemir, Pepcid, trazodone, Zoloft, metoprolol, levothyroxine, and nitroglycerin p.r.n. PAST MEDICAL HISTORY: Insulin-dependent diabetic, hyperlipidemia, hypothyroidism, depression, and history of heart disease. PAST SURGICAL HISTORY: Tonsillectomy, two C-sections, cholecystectomy, appendectomy, ovarian fibrosis tumor removal with a hysterectomy and 2 cardiac stents. FAMILY HISTORY: Breast cancer in mother. Otherwise, negative for any other GI cancers. SOCIAL HISTORY: Denies alcohol, tobacco or illegal drug use at this time. REVIEW OF SYSTEMS: Twelve-point review of systems is essentially negative except what is mentioned [place] [address] CONSULTATION Name: ERASTO CULVER Room: [address] IN [facility]#: [id number] Admission: 05/08/19 Attend Phys: Glendy Lang Discharge: Date of : 80 Report #: [id number] PHYSICAL EXAMINATION: VITAL SIGNS: Temperature 36.7, pulse 88, respirations 18, and blood pressure 117/69. HEART: Regular rate and rhythm. LUNGS: Clear. ABDOMEN: Soft, positive bowel sounds in all 4 quadrants with just some slight epigastric tenderness noted to palpation. LABORATORY DATA: Hemoglobin is 13.4, white count is 7.1, platelets 281. Iron is 20, iron sat is 8, ferritin is 56. Her GFR is 62. PT is 9.8, INR is 1. Total bilirubin is 0.3, alkaline phosphatase is 143, ALT 33, AST 21. GGTP was 172. Blood glucose this morning was 285. IMPRESSION: 1. Nausea. 2. Early satiety. 3. Gastroesophageal reflux disease. 4. Epigastric pain. 5. Diabetes, poorly controlled. 6. Elevated alkaline phosphatase and GGTP. 7. Family history of breast cancer in mother. PLAN: 1. EGD today with Dr. Bartholomew. 2. The patient needs an outpatient 4 hour gastric emptying scan that will need to be done as an outpatient since the machine is down here during her hospitalization. 3. Check hemoglobin A1c. 4. Further recommendations to be made once the procedure has been performed. Thank you for allowing us to participate in this patient's care. Please do not hesitate to call with any questions in regard to this consult. By: 0801 [id number] Bartholomew MD /naida
--- NOTE | ~2019-05-08 | PROC ---
[address] [address] PROCEDURE REPORT Name: ERASTO CULVER Room: [address] IN M.R.#: [id number] Admission: 05/08/19 Attend Phys: Glendy Lang Discharge: 05/11/19 Date of : 80 Report #: [id number] THIS REPORT FOR: //name// For GI report, please see the Provation report in Perceptive 7 content. By: 0642Medical Records Staff DAGMAR /JOSÉ LUIS
[~2019-05-08 11:03] MED LIST changes: +DIFLUCAN150 M1 PO; +IMDUR 60 MG TAB60 M1 PO; +LEVEMIR FL100 UNIT/2 SUBQ; -LEVOTHYROXINE150 MCG PO; +LEVOXYL175 MCG PO; +NEURONTIN 300300 M1 PO; +NORCO 5-325 TA1 EAC1 PO; +ONDANSETRON HCL4 M2 PO
[2019-05-08] MEDS ORDERED: TRAZODONE HCL100 MG PO (11:20)
[2019-05-08] MEDS ORDERED: PEPCID20 MG PO (11:20)
[2019-05-08] MEDS ORDERED: ZOLOFT100 MG PO (11:20)
[2019-05-08 11:46] LABS: URINE BILIRUBIN NEGATIVE (Negative); URINE BLOOD TRACE (Negative); URINE CLARITY CLEAR; URINE COLOR YELLOW; URINE GLUCOSE-RANDOM 3+ (Negative); URINE LEUKOCYTES-REFLEX NEGATIVE (Negative); URINE NITRITE-REFLEX NEGATIVE (Negative); URINE PROTEIN 1+ (Negative); URINE UROBILINOGEN 0.2 E.U./dl (0.2-1.0)
[2019-05-08 11:47] LABS: URINE KETONES 3+ (Negative)
[2019-05-08 11:54] LABS: BE -14.7 mmol/L (-2 to +3); PCO2 VENOUS 27.9 mmHg (41.0-51.0); PO2 VENOUS 85.1 mmHg (35.0-45.0)
[2019-05-08 11:55] LABS: ABSOLUTE BASOPHILS 0.1 thou/uL (0.0-0.2); ABSOLUTE EOSINOPHILS 0.1 thou/uL (0.0-0.7); ABSOLUTE LYMPHOCYTES 1.8 thou/uL (0.8-5.3); ABSOLUTE MONOCYTES 0.5 thou/uL (0.0-1.2); ABSOLUTE NEUTROPHILS 5.3 thou/uL (1.6-8.1); BASOPHILS 0.7 %; EOSINOPHILS 1.3 %; HEMATOCRIT 44.5 % (37.0-47.0); LYMPHOCYTES 23.5 %; MCH 28.6 pg (26.0-34.0); MCHC 33.8 g/dL (28.0-37.0); MCV 84.7 fL (80.0-100.0); MONOCYTES 6.2 %; MPV 9.3 fl. (7.2-11.1); NUCLEATED RBCS 0 /100WBC; PLATELET COUNT* 314 thou/uL (150-400); POLYS 68.3 %; RBC 5.25 mil/uL (4.20-5.00); RDW-CV 16.3 % (10.5-14.5); WBC 7.7 thou/uL (4.0-11.0)
[2019-05-08 12:06] LABS: PROTIME 9.8 Seconds (9.20-11.50)
[2019-05-08 12:26] LABS: CALCIUM 9.2 mg/dL (8.5-10.1); CREATININE 0.9 mg/dL (0.6-1.3); POTASSIUM 4.3 mmol/L (3.5-5.1)
[2019-05-08 12:33] LABS: ALBUMIN 3.8 g/dL (3.4-5.0); TOTAL BILIRUBIN 0.5 mg/dL (<0.1-1.0); TOTAL PROTEIN 9.2 g/dL (6.4-8.2)
--- NOTE | 2019-05-08 14:21 | NUR ---
REPORT GIVEN TO TREVOR ACOSTA WHO IS TO ASSUME PT CARE INPATIENT NURSE.
--- NOTE | 2019-05-08 15:34 | EKG ---
[place] [address] ELECTROCARDIOGRAM REPORT Name: ERASTO CULVER Room: [address] ADM IN M.R.#: [id number] Admission: 05/08/19 Attend Phys: Glendy Lang Discharge: Date of : 80 Report #: [id number] THIS REPORT FOR: //name// [facility] ED Test Date: 2019-05-08 Test Time: 11:17:47 Pat Name: ERASTO CULVER Department: Room: [facility] Gender: F Quality Improvement Analyst: : 1980 Requested By: Bob Painter Order Number: [id number] MD: Slade Daley Measurements Intervals [place] Rate: 104 P: 74 TN: 147 QRS: -38 QRSD: 90 T: 37 QT: 356 QTc: 469 Interpretive Statements Sinus tachycardia consider Inferior infarct, old Consider anterior infarct Baseline wander in lead(s) II,V3,V6 Compared to ECG 01/16/2019 16:14:06 no change Electronically Signed On 05-08-2019 15:33:21 POST CLOSER by Slade Daley [email or web address] <ELECTRONICALLY SIGNED> By: Slade Daley MD, FAC 05/08/19 1533 1117 1117 Slade Daley MD, [facility] /EPI
[2019-05-08 16:56] LABS: CALCIUM 8.5 mg/dL (8.5-10.1); CREATININE 1.1 mg/dL (0.6-1.3); POTASSIUM 4.2 mmol/L (3.5-5.1)
[2019-05-08 16:59] LABS: ALBUMIN 3.3 g/dL (3.4-5.0); MAGNESIUM 1.6 mg/dL (1.8-2.4); PHOSPHORUS* 2.2 mg/dL (2.5-4.9)
--- NOTE | 2019-05-08 18:46 | NUR ---
THIS ALARM MECHANISM ADJUSTER ASSUMED CARE OF PT AT 1430 CAME FROM ER GENERALIZED WEAKNESS AND DKA PT PROGRESSED TOWARD GOALS DURING SHIFT INSULIN DRIP TITRATED FROM 5 TO 2.5 CORRECT FLUIDS HANGING ACCORDING TO LABS AND PROTOCOL ANION GAP IS 16 OF LAST LAB DRAW BLOOD SUGAR CHECKED HOURLY UPPER 100 LOW 200'S RESTING NPO BEDREST PT IN BED SLEEPING
--- NOTE | 2019-05-08 20:50 | NUR ---
RECEIVED REPORT AND ASSUMED CARE AT 1900. VSS. ICU MONITORING IN PLACE. PT REPORTS PAIN, PRN MEDICATION ADMIN PRIOR TO SHIFT CHANGE. ASSESSMENT COMPLETED CHARTED. DISCUSSED PLAN OF CARE WITH PT, VERBLAIZED UNDERSTANDING. BED LOCKED IN LOWEST POSITION, CALL LIGHT WITHIN REACH.
[2019-05-08 20:52] LABS: ALBUMIN 3.1 g/dL (3.4-5.0); CALCIUM 7.9 mg/dL (8.5-10.1); MAGNESIUM 1.4 mg/dL (1.8-2.4); PHOSPHORUS* 2.1 mg/dL (2.5-4.9)
[2019-05-09] VITALS (16 sets, daily range): BP systolic 116–151; BP diastolic 67–91
[2019-05-09 01:50] LABS: ALBUMIN 3.1 g/dL (3.4-5.0); CALCIUM 8.2 mg/dL (8.5-10.1); CREATININE 0.9 mg/dL (0.6-1.3); MAGNESIUM 1.7 mg/dL (1.8-2.4); POTASSIUM 4.1 mmol/L (3.5-5.1)
[2019-05-09 05:31] LABS: ABSOLUTE EOSINOPHILS 0.2 thou/uL (0.0-0.7); ABSOLUTE MONOCYTES 0.7 thou/uL (0.0-1.2); ABSOLUTE NEUTROPHILS 4.2 thou/uL (1.6-8.1); BASOPHILS 0.6 %; EOSINOPHILS 2.6 %; HEMOGLOBIN 13.4 gm/dL (12.0-15.0); MCH 28.1 pg (26.0-34.0); MCHC 34.3 g/dL (28.0-37.0); MONOCYTES 9.4 %; MPV 8.7 fl. (7.2-11.1); NUCLEATED RBCS 0 /100WBC; PLATELET COUNT* 281 thou/uL (150-400); POLYS 59.4 %; RBC 4.75 mil/uL (4.20-5.00); RDW-CV 16.9 % (10.5-14.5); WBC 7.1 thou/uL (4.0-11.0)
[2019-05-09 05:57] LABS: CREATININE 0.8 mg/dL (0.6-1.3); MAGNESIUM 1.6 mg/dL (1.8-2.4); PHOSPHORUS* 2.1 mg/dL (2.5-4.9); POTASSIUM 4.2 mmol/L (3.5-5.1); TOTAL PROTEIN 7.2 g/dL (6.4-8.2)
[2019-05-09 06:12] LABS: CALCIUM 7.8 mg/dL (8.5-10.1); TOTAL BILIRUBIN 0.3 mg/dL (<0.1-1.0)
[2019-05-09 08:48] LABS: URINE BLOOD NEGATIVE (Negative); URINE CLARITY CLEAR; URINE COLOR YELLOW; URINE GLUCOSE-RANDOM 2+ (Negative); URINE KETONES 2+ (Negative); URINE LEUKOCYTES NEGATIVE (Negative); URINE NITRITE NEGATIVE (Negative); URINE PROTEIN 2+ (Negative); URINE SPECIFIC GRAVITY 1.025 (1.005-1.030); URINE UROBILINOGEN 0.2 E.U./dl (0.2-1.0)
[2019-05-09 08:55] LABS: ICTOTEST (BILI CONFIRMATORY) Negative (Negative); URINE BILIRUBIN 1+ (Negative)
[2019-05-09 08:56] LABS: ALBUMIN 2.9 g/dL (3.4-5.0); CALCIUM 7.9 mg/dL (8.5-10.1); CREATININE 0.8 mg/dL (0.6-1.3); MAGNESIUM 1.7 mg/dL (1.8-2.4); PHOSPHORUS* 2.2 mg/dL (2.5-4.9)
[2019-05-09 09:27] LABS: BACTERIA 1-9 Few /HPF (None Seen); CRYSTALS None Seen /LPF (None Seen); HYALINE CASTS 0-3 Few /LPF (None Seen); MUCUS None Seen strn/LPF (None Seen); SQUAMOUS 0-3 Few /LPF (0-3); URINE RBC 0-2 Rare /HPF (0-2); URINE WBC 0-5 Rare /HPF (0-5)
--- NOTE | 2019-05-09 11:45 | NUR ---
INT. ROUNDS: MET WITH PT, ADMITTED WITH DKA. PT LIVES WITH HER MOTHER AND CHILDREN. SHE IS INDEPENDENT AND ACTIVE, USES NO EQUIPMENT. HAS DM METER AND STATES IS COMPLIANT WITH MEDS. HAS HAD URI RECENTLY AND BEEN ON MEDS FOR IT. SHE FOLLOWS WITH DR QUAN/ASHTYN AND HAS THE [employer] DISCOUNT. MADE PT AWARE [facility] WOULD SCREEN HER FOR MEDICAID WHILE HERE. PT STATES 'THEY SAY I NEVER QUALIFY.' PT DENIES DC NEEDS. HAS F/U APPT WITH HER 2/3
--- NOTE | 2019-05-09 18:00 | NUR ---
DKA PROTOCOL DC'd AT 1500 PER ORDERS. ZOFRAN GIVEN ONCE FOR NAUSEA. VSS. UP AD PAVEL. TOLERATING DIET.INSULIN PER SLIDING SCALE, REPORT GIVEN TO TREVOR CUEVAS, TELE.
--- NOTE | 2019-05-09 18:15 | NUR ---
PT ARRIVED ON TELE FLOOR AT 1800. ON RA. NO COMPLAINT. VSS. TRACING SINUS RYTHM ON CLAM PICKER. UP AD PAVEL. CALL LIGHT AT [facility]. WCTM
[2019-05-10] VITALS: BP 133/70
[2019-05-10 04:00] VITALS: BP 119/73
--- NOTE | 2019-05-10 05:06 | NUR ---
PATIENT PARTIALLY PROGRESSING TOWARDS GOALS: PATIENT HAD BLOOD SUGAR >300 AT HS, MAKING TWO CONSECUTIVE BLOOD SUGARS >300. PHYSICIAN NOTIFIED. ORDERS OBTAINED TO INCREASE INSULIN SLIDING SCALE TO MODERATE DOSE. ADMINISTERED PER ORDERS. PATIENT USED CALL LIGHT APPROX 2340 STATING SHE FELT LIKE BLOOD SUGAR WAS LOW. CHECK WAS 48. PROVIDED JUICE AND SNACKS AND EFFECTIVELY CORRECTED BLOOD SUGAR. PATIENT DENIES PAIN. CALL LIGHT WITHIN REACH
[2019-05-10 08:00] VITALS: BP 137/84
[2019-05-10 12:14] LABS: CALCIUM 8.7 mg/dL (8.5-10.1); MAGNESIUM 1.7 mg/dL (1.8-2.4); PHOSPHORUS* 1.9 mg/dL (2.5-4.9); POTASSIUM 3.9 mmol/L (3.5-5.1)
[2019-05-10 13:02] VITALS: BP 121/87
[2019-05-10 16:00] VITALS: BP 142/86
--- NOTE | 2019-05-10 18:59 | NUR ---
ASSUSMED CARE OF PT APPROX 0730. REASSESSMENT COMPLETED CHARTED. MEDICATIONS GIVEN CHARTED. FAMILY AT BESIDE THIS SHIFT. PT CALLS OUT FOR NEEDS. SAFTEY PRECAUTIONS UTILIZED AND HOURLY ROUNDED. CALL LIGHT WITHIN REACH.
[2019-05-10 20:30] VITALS: BP 141/82
[2019-05-11 00:20] VITALS: BP 151/88
[2019-05-11 04:27] VITALS: BP 117/69
[2019-05-11 08:00] VITALS: BP 132/74
[2019-05-11 12:00] VITALS: BP 133/79
[2019-05-11 13:04] VITALS: BP 133/79
[2019-05-11 17:56] VITALS: BP 133/79
[2019-05-11] MEDS ORDERED: ONDANSETRON HCL4 M3 PO (17:59)
[2019-05-11] MEDS ORDERED: SENNA PLUS TAB1 EACH PO (18:00)
--- NOTE | 2019-05-11 18:21 | NUR ---
ASSUMED PT CARFE AT 0800, AOX4, UP AD PAVEL. O2 SAT 90'S RA. TRACING SR ON TELE. PT DENIES PAIN. PT COMPLAINS OF NAUSEA RELIEVE FROM ZOFRAN. PT HAD EGD TODAY. PT FOR DISCHARGE. AM ASSESSMENT CHARTED. HOURLY ROUNDING OBSERVED. WILL CONTINUE TO MONITOR.
--- NOTE | 2019-05-11 18:56 | NUR ---
DISCHARGED PLAN DISCUSS WITH THE PT. MEDICATION PACKET/SCRIPT GIVEN. MIDLINNE IV REMOVED. GI OK TO D/C. VERIFY DISCHARGE WITH HOSPITALIST. TELE REMOVED. LEFT THE UNIT AMBULATORY AT 1850.
[2019-05-12 04:08] LABS: GLYCOHEMOGLOBIN (HGB A1C) 14.4 % (4.8-5.6)
--- NOTE | 2019-05-15 13:07 | PATH ---
[address] [address] PATHOLOGY RPT PROCEDURE Name: EDWINA CALDERON Room: [address] IN M.R.#: [id number] Admission: 05/08/19 Date of : 80 Discharge: 05/11/19 Report #: [id number] Path Case #: [id number] [facility] Accession Number: [id number] . 01 Material submitted: . stomach - GASTRIC BIOPSY . 01 Clinical history: . None provided . 01 Frozen section diagnosis: . . /QTP . 02 Diagnosis: Gastric biopsy "gastric biopsy": - Mild chronic gastritis with intestinal metaplasia and reactive foveolar hyperplasia. - The immunoperoxidase stain for Helicobacter pylori is negative. - The control worked appropriately. (SHA:pit 05/15/2019) QTP 05/15/2019 0917 Local . 02 Electronically signed: . Oumar Call MD, Pathologist NPI- [id number] . 01 Gross description: . Received in formalin labeled "Edwina Calderon, gastric biopsy for H. pylori," are 4 segments of dee soft tissue measuring 0.9 x 0.6 x 0.2 cm in aggregate dimensions and ranging from 0.3 to 0.6 cm in maximum dimension. The specimen is submitted entirely in cassette A1. (TSD; 05/12/2019) TOB/TOB 05/12/2019 1939 Local . 02 Pathologist provided ICD-10: K29.50 . 02 CPT . 437594, J00675 Specimen Comment: A courtesy copy of this report has been sent to [phone] Specimen Comment: [phone], Specimen Comment: Report sent to , and Performed at: [address] [id number] MD Jasen Franklin MD Phone: [phone] [place] [address] PATHOLOGY RPT PROCEDURE Name: EDWINA CALDERON Room: [address] IN M.R.#: [id number] Admission: 05/08/19 Date of : 80 Discharge: 05/11/19 Report #: [id number] Path Case #: [id number] Performed at: [address] [id number] MD Ruben Álvarez MD Phone: [phone]
== END 2019-05-11 18:50 | disposition home or self-care (01) | DRG 639 ==
LOC: M.ERS 11:03 → M.ICU 12:53 → M.TBA-ER 12:53 → M.ICU 14:21 → M.2W 05-09 17:55
PROVIDERS: Emergency Medicine Emergency Medical Services; Nurse Practitioner Adult Health; ADMIT Internal Medicine
PROC: 0DB78ZX Excision of Stomach, Pylorus, Via Natural or Artificial Opening Endoscopic, Diagnostic (ICD-10-PCS; principal; 2019-05-11)
DX: E11.10 Type 2 diabetes mellitus with ketoacidosis without coma (principal); E03.9 Hypothyroidism, unspecified; E78.5 Hyperlipidemia, unspecified; E11.43 Type 2 diabetes mellitus with diabetic autonomic (poly)neuropathy; K21.9 Gastro-esophageal reflux disease without esophagitis; K31.84 Gastroparesis; E83.42 Hypomagnesemia; K29.70 Gastritis, unspecified, without bleeding; E87.6 Hypokalemia; G89.29 Other chronic pain; I10 Essential (primary) hypertension; I25.10 Atherosclerotic heart disease of native coronary artery without angina pectoris; F32.9 Major depressive disorder, single episode, unspecified; R68.81 Early satiety; Z90.710 Acquired absence of both cervix and uterus; Z95.5 Presence of coronary angioplasty implant and graft; Z98.891 History of uterine scar from previous surgery; Z90.49 Acquired absence of other specified parts of digestive tract; Z85.43 Personal history of malignant neoplasm of ovary; Z88.8 Allergy status to other drugs, medicaments and biological substances; Z79.899 Other long term (current) drug therapy; Z79.82 Long term (current) use of aspirin; Z79.4 Long term (current) use of insulin; Z88.1 Allergy status to other antibiotic agents; Z88.5 Allergy status to narcotic agent; Z88.2 Allergy status to sulfonamides; Z80.3 Family history of malignant neoplasm of breast

== ENCOUNTER 2019-08-28 14:45 | Inpatient (IN) | payer OTHER ==
[2019-08-28] VITALS (7 sets, daily range): BP systolic 112–140; BP diastolic 62–79
[~2019-08-28] VITALS: Ht 157.5 cm; Wt 49.1 kg
[~2019-08-28 14:45] MED LIST changes: +ONDANSETRON HCL4 M3 PO; +PEPCID20 MG PO; +SENNA PLUS TAB1 EACH PO; +ZOLOFT100 MG PO
[2019-08-28] MEDS ORDERED: HUMULIN R100 UNIT/1 SUBQ (15:00)
[2019-08-28 15:15] LABS: ABSOLUTE BASOPHILS 0.1 thou/uL (0.0-0.2); ABSOLUTE EOSINOPHILS 0.1 thou/uL (0.0-0.7); ABSOLUTE LYMPHOCYTES 1.8 thou/uL (0.8-5.3); ABSOLUTE MONOCYTES 0.6 thou/uL (0.0-1.2); ABSOLUTE NEUTROPHILS 7.7 thou/uL (1.6-8.1); BASOPHILS 0.9 %; EOSINOPHILS 0.8 %; HEMOGLOBIN 14.9 gm/dL (12.0-15.0); LYMPHOCYTES 17.7 %; MCHC 34.7 g/dL (28.0-37.0); MCV 89.3 fL (80.0-100.0); MONOCYTES 5.5 %; MPV 9.4 fl. (7.2-11.1); NUCLEATED RBCS 0 /100WBC; PLATELET COUNT* 341 thou/uL (150-400); POLYS 75.1 %; RBC 4.81 mil/uL (4.20-5.00); RDW-CV 12.6 % (10.5-14.5); WBC 10.3 thou/uL (4.0-11.0)
[2019-08-28 15:31] LABS: CALCIUM 9.2 mg/dL (8.5-10.1); CREATININE 1.5 mg/dL (0.6-1.3); POTASSIUM 4.2 mmol/L (3.5-5.1)
[2019-08-28 15:34] LABS: TOTAL BILIRUBIN 0.7 mg/dL (<0.1-1.0); TOTAL PROTEIN 9.4 g/dL (6.4-8.2)
[2019-08-28 15:35] LABS: URINE BILIRUBIN NEGATIVE (Negative); URINE BLOOD NEGATIVE (Negative); URINE CLARITY CLEAR; URINE COLOR YELLOW; URINE GLUCOSE-RANDOM 3+ (Negative); URINE KETONES 2+ (Negative); URINE LEUKOCYTES-REFLEX NEGATIVE (Negative); URINE NITRITE-REFLEX NEGATIVE (Negative); URINE PROTEIN NEGATIVE (Negative); URINE SPECIFIC GRAVITY 1.015 (1.005-1.030); URINE UROBILINOGEN 0.2 E.U./dl (0.2-1.0)
--- NOTE | 2019-08-28 16:39 | EKG ---
[place] [address] ELECTROCARDIOGRAM REPORT Name: ERASTO CULVER Room: [facility]#: [id number] Admission: 08/28/19 Attend Phys: Discharge: Date of : 80 Date of Service: 08/28/19 1452 Report #: [id number] THIS REPORT FOR: //name// [facility] ED Test Date: 2019-08-28 Test Time: 14:52:19 Pat Name: ERASTO CULVER Department: Room: Gender: F Licensed Clinical Psychologist: [facility] : 1980 Requested By: Boom Lawrence Order Number: [id number] Kingsley MD: Everett Morales Measurements Intervals Egan Rate: 92 P: 58 DC: 146 QRS: -14 QRSD: 91 T: 28 QT: 385 QTc: 477 Interpretive Statements Sinus rhythm Consider right atrial enlargement Low voltage, precordial leads Borderline prolonged QT interval Compared to ECG 05/08/2019 11:17:47 Low QRS voltage now present Sinus tachycardia no longer present Myocardial infarct finding no longer present Electronically Signed On 08-28-2019 16:37:26 CDT by Everett Morales [email or web address] <ELECTRONICALLY SIGNED> By: Everett Morales MD, [facility] 08/28/19 1637 1452 1452 Everett Morales MD, [facility] /EPI
[2019-08-28 16:48] LABS: BE -9.9 mmol/L (-2 to +3); PCO2 VENOUS 36.5 mmHg (41.0-51.0); PO2 VENOUS 77.2 mmHg (35.0-45.0)
--- NOTE | 2019-08-28 18:59 | NUR ---
RECEIVED REPORT AND ASSUMED CARE OF PT @ 1276.
[2019-08-28 21:45] LABS: CALCIUM 8.1 mg/dL (8.5-10.1); CREATININE 0.9 mg/dL (0.6-1.3); POTASSIUM 3.6 mmol/L (3.5-5.1)
[2019-08-28 21:48] LABS: ALBUMIN 3.1 g/dL (3.4-5.0); MAGNESIUM 1.7 mg/dL (1.8-2.4)
[2019-08-29] VITALS (14 sets, daily range): BP systolic 98–130; BP diastolic 60–77
[2019-08-29 01:27] LABS: CALCIUM 7.9 mg/dL (8.5-10.1); CREATININE 0.9 mg/dL (0.6-1.3); POTASSIUM 3.7 mmol/L (3.5-5.1)
[2019-08-29 01:30] LABS: ALBUMIN 2.8 g/dL (3.4-5.0); MAGNESIUM 1.6 mg/dL (1.8-2.4); PHOSPHORUS* 2.4 mg/dL (2.5-4.9)
--- NOTE | 2019-08-29 07:28 | NUR ---
RECEIVED REPORT AND ASSUMED CARE AT 1900. VSS. ICU MONITORING IN PLACE. ASSESSMENT COMPLETED CHARTED, DISCUSSED PLAN OF CARE. VERBALIZED UNDERSTANDING. PT UP SBA TO BSC. ON RA. BED LOCKED IN LOWEST POSITION, CALL LIGHT WITHIN REACH, BED ALARM ON.
[2019-08-29 09:19] LABS: CALCIUM 7.8 mg/dL (8.5-10.1); CREATININE 0.9 mg/dL (0.6-1.3); POTASSIUM 3.9 mmol/L (3.5-5.1)
[2019-08-29 09:22] LABS: ALBUMIN 2.6 g/dL (3.4-5.0); MAGNESIUM 1.7 mg/dL (1.8-2.4); PHOSPHORUS* 2.1 mg/dL (2.5-4.9)
[2019-08-29 09:33] LABS: CHOLESTEROL 189 mg/dL (<200); HDL CHOLESTEROL 28 mg/dL (>40); TC:HDL 6.8 Ratio (Not establshd); TRIGLYCERIDE 846 mg/dL (<150); VLDL 169 mg/dL (<40)
[2019-08-29 09:34] LABS: SERUM ASSESSMENT Clear
--- NOTE | 2019-08-29 15:08 | NUR ---
ICU rounds: Pt admitted for DKA and CP, DKA is resolved. Pt is tele status. Plan stress test tomorrow, pending results, Pt may be ready to dc. Pt resides at home with her mom and kids. Independent. No DME. No hx of HH or SNF. Pt sees Dr Jose Cabral at the [facility], Pt has the [employer] discount. Goal is home at dc, no needs anticipated Dr Cabral [phone]
--- NOTE | 2019-08-29 18:34 | NUR ---
ASSESSMENT CHARTED. VSS THROUGHOUT THIS SHIFT. PAIN CONTROLLED WITH PRN TYLENOL/CODEINE AND INCREASED ACTIVITY. TOLERATING CARB CONTROLLED DIET WITHOUT DIFFICULTY. LAST BS 93. PT MADE TELEMETRY STATUS THIS MORNING. NO OTHER EVENTS DURING THIS SHIFT.
[2019-08-30 00:04] VITALS: BP 95/58
[2019-08-30 02:07] LABS: GLYCOHEMOGLOBIN (HGB A1C) 13.1 % (4.8-5.6)
[2019-08-30 04:41] VITALS: BP 127/72
--- NOTE | 2019-08-30 06:54 | NUR ---
ASSUMED PATIENT CARE AT 1900. ASSESSMENT COMPLETED CHARTED. CARDIAC MONITORING IN PLACE. PATIENT REPORTED CHEST PAIN DURING SHIFT. PHYSICIAN NOTIFIED, NEW ORDERS RECEIVED. EKG COMPLETED. MEDICATIONS ADMNISTERED PER EMAR, PATIENT REPORTED CESSATION OF PAIN. BED LOCKED AND IN LOWEST POSITION, HOURLY ROUNDING IN PLACE FOR PATIENT SAFETY, CLWR.
[2019-08-30] MEDS ORDERED: SYNTHROID100 MC1 PO (07:19)
--- NOTE | 2019-08-30 08:00 | NUR ---
PT IS A/OX4,VSS,NUTRITION PROFESSOR IN PLACE.NO C/O PAIN.PT TELEMETRY STATUS AND TO TRANSFER TO ROOM 209.ALL PERSONAL BELONGINGS PACKED.PT INFORMED OF MOVE AND COMMUNICATES UNDERSTANDING.
[2019-08-30 08:23] VITALS: BP 122/71
--- NOTE | 2019-08-30 08:40 | NUR ---
PT TRANSFERRED BY WHEELCHAIR WITH DISC PAD PLATE FILLER @ 2648 TO ROOM 209.
[2019-08-30 12:48] VITALS: BP 119/64
--- NOTE | 2019-08-30 16:34 | EKG ---
[place] [address] ELECTROCARDIOGRAM REPORT Name: ERASTO CULVER Room: [address] ADM IN M.R.#: [id number] Admission: 08/28/19 Attend Phys: Jasson Rosario, Discharge: Date of : 80 Date of Service: 08/29/192110 Report #: [id number] THIS REPORT FOR: //name// [facility] Test Date: 2019-08-29 Test Time: 21:11:03 Pat Name: ERASTO CULVER Department: Room: [address] Gender: F Applied Computer Science Professor: [place] : 1980 Requested By: Jasson Rosario Order Number: [id number] Kingsley MD: Everett Morales Measurements Intervals [place] Rate: 85 P: 52 GA: 137 QRS: -15 QRSD: 93 T: 20 QT: 376 QTc: 447 Interpretive Statements Sinus rhythm Borderline left axis deviation Low voltage, precordial leads Delayed R wave progression Baseline wander in lead(s) V1 Compared to ECG 08/28/2019 14:52:19 Electronically Signed On 08-30-2019 16:33:03 CDT by Everett Morales [email or web address] <ELECTRONICALLY SIGNED> By: Everett Morales MD, FACC 08/30/19 1633 10 10 Everett Morales MD, FACC /EPI
--- NOTE | 2019-08-30 16:36 | EKG ---
[place] [address] ELECTROCARDIOGRAM REPORT Name: ERASTO CULVER Room: [address] IN M.R.#: [id number] Admission: 08/28/19 Attend Phys: Jasson Rosario, Discharge: Date of : 80 Date of Service: 08/29/192227 Report #: [id number] THIS REPORT FOR: //name// [facility] Test Date: 2019-08-29 Test Time: 22:28:23 Pat Name: ERASTO CULVER Department: Room: [address] Gender: F Repairer Maintenance Building: UNKNOWN : 1980 Requested By: Jasson Rosario Order Number: [id number] Kingsley MD: Everett Morales Measurements Intervals [place] Rate: 87 P: 42 AK: 139 QRS: -14 QRSD: 83 T: 15 QT: 386 QTc: 465 Interpretive Statements Sinus rhythm Delayed R wave progression Compared to ECG 08/28/2019 14:52:19 No significant changes noted Electronically Signed On 08-30-2019 16:34:26 CDT by Everett Morales [email or web address] <ELECTRONICALLY SIGNED> By: Everett Morales MD, FACC 08/30/19 1634 Everett Morales MD, [facility] /EPI
--- NOTE | 2019-08-30 17:14 | CON ---
[address] [address] CONSULTATION Name: ERASTO CULVER Room: [address] IN .R.#: [id number] Admission: 08/28/19 Attend Phys: Jasson Rosario MD Discharge: Date of : 80 Report #: [id number] THIS REPORT FOR: //name// cc: CATHERINE Lang family physician/PCP CATHERINE - Precious family physician/PCP ~ THIS REPORT FOR: //name// CC: CATHERINE physician/PCP Jasson Rosario DATE OF SERVICE: 08/30/2019 CARDIOLOGY CONSULTATION HISTORY OF PRESENT ILLNESS: The patient is a pleasant 39-year-old female with diabetes since age 12 and aggressive coronary artery disease, status post prior PCIs at [facility]. Catheterization here in 2016 revealed significant distal LAD stenosis, which was not approached in that setting. Two days ago, she developed episodes of chest discomfort with some radiation up into the left shoulder, typical of her prior angina. Episodes of waxed and waned with some response to nitrates. She is pain free at present. There have been no enzymatic or electrocardiographic evidences for acute myocardial injury. PAST MEDICAL HISTORY: Remarkable for aggressive diabetes. SOCIAL HISTORY: The patient is not a smoker. REVIEW OF SYSTEMS: Remarkable for aforementioned endocrine abnormalities as well as aggressive coronary artery disease. PHYSICAL EXAMINATION: GENERAL: Demonstrates a nondistressed appearing, middle-aged female. VITAL SIGNS: Blood pressure is 130/70, pulse rate is 74, respirations are 18 per minute. NECK: Jugular venous pressure is normal. Carotids are 1-2+. CHEST: Clear. CARDIAC: Reveals normal first and second heart sounds without murmurs or gallops. ABDOMEN: Mildly obese. EXTREMITIES: Without edema with intact pulses. LABORATORY DATA: Electrocardiogram demonstrates a sinus rhythm, possible inferior scar, nonspecific ST-T alterations and no acute changes. IMPRESSION: [place] [address] CONSULTATION Name: ERASTO CULVER Room: [address]#: [id number] Admission: 08/28/19 Attend Phys: Jasson Rosario MD Discharge: Date of : 80 Report #: [id number] 1. Chest pain compatible with angina following an unstable course. 2. Coronary artery disease, status post prior percutaneous coronary interventions. 3. Diabetes mellitus. 4. Hyperlipidemia. RECOMMENDATIONS: Given the aforementioned clinical scenario, I would recommend proceeding with the scheduled Lexiscan Cardiolite to address the magnitude of inducible ischemia. Contingent on the results of the study and her clinical course, cardiac catheterization should be considered. CRITICAL CARE TIME: 35 minutes, 1100 to 1135 hours. <ELECTRONICALLY SIGNED> By: Edmundo Gonzalez MD, [facility] 08/30/19 1714 1139 [id number] Gonzalez MD, FACC /nt
[2019-08-30 18:28] LABS: ABSOLUTE EOSINOPHILS 0.1 thou/uL (0.0-0.7); ABSOLUTE LYMPHOCYTES 1.3 thou/uL (0.8-5.3); ABSOLUTE MONOCYTES 0.6 thou/uL (0.0-1.2); ABSOLUTE NEUTROPHILS 4.5 thou/uL (1.6-8.1); BASOPHILS 0.5 %; HEMATOCRIT 35.5 % (37.0-47.0); HEMOGLOBIN 12.2 gm/dL (12.0-15.0); LYMPHOCYTES 19.8 %; MCH 29.6 pg (26.0-34.0); MCHC 34.4 g/dL (28.0-37.0); MCV 85.8 fL (80.0-100.0); MONOCYTES 8.5 %; MPV 9.3 fl. (7.2-11.1); NUCLEATED RBCS 0 /100WBC; PLATELET COUNT* 242 thou/uL (150-400); POLYS 69.2 %; RBC 4.14 mil/uL (4.20-5.00); RDW-CV 13.1 % (10.5-14.5); WBC 6.6 thou/uL (4.0-11.0)
[2019-08-30 18:36] LABS: ALBUMIN 2.8 g/dL (3.4-5.0); ALKALINE PHOSPHATASE 211 U/L (46-116); ANION GAP 6 mmol/L (7-16); BUN 11 mg/dL (7-18); CHLORIDE 102 mmol/L (98-107); CO2 26 mmol/L (21-32); GLUCOSE 246 mg/dL (70-99); PHOSPHORUS* 2.3 mg/dL (2.5-4.9); POTASSIUM 3.8 mmol/L (3.5-5.1); SGOT 179 U/L (15-37); SGPT 99 U/L (30-65); SODIUM 134 mmol/L (136-145); TOTAL BILIRUBIN 0.3 mg/dL (<0.1-1.0); TOTAL PROTEIN 6.6 g/dL (6.4-8.2)
[2019-08-30 18:42] LABS: CALCIUM 8.1 mg/dL (8.5-10.1); CREATININE 0.8 mg/dL (0.6-1.3)
[2019-08-30 19:40] VITALS: BP 139/79
[2019-08-31 00:10] VITALS: BP 138/85
--- NOTE | 2019-08-31 00:51 | NUR ---
ASSUMED CARE OF PT AT 1900. PT IS ALERT AND ORIENTED. VSS. PERRLA. PT IS UP AD PAVEL. PTS BLOOD SUGAR IS 345. PT IS IN SINUS TACHYCARDIA. PT IS SLEEPING QUIETLY IN BED. RESPIRATIONS ARE EVEN AND NONLABORED. WILL CONTINUE TO MONITOR PT.
[2019-08-31 04:09] VITALS: BP 130/76
--- NOTE | 2019-08-31 07:45 | CARDNUC ---
[place] [address] CARDIAC NUCLEAR IMAGING REPORT Name: ERASTO CULVER Room: [address] IN [facility]#: [id number] Admission: 08/28/19 Attend Phys: Jasson Rosario, Discharge: Date of : 80 Date of Service: 08/31/19 0743 Report #: [id number] THIS REPORT FOR: cc: FAM - No family physician/PCP FAM - No family physician/PCP Everett Morales MD [facility] ~ APPROVED REPORT Study performed: 08/30/2019 16:34:13 Exam: Nuclear Stress Test Indication: Chest pain Patient Location: In-Patient Room #: icu 2 Stress Tech: Rosario Jain Stress Nurse: Liane Mike RN Ht: 5 ft 2 in Wt: 154 lbs BSA: 1.71 m2 BMI: 28.16 Medical History Medical History: CAD s/p stent, Diabetes, HTN, Hyperlipidemia Medications: asa-81, atorvastatin, isosorbide, metoprolol Allergies: sulfa, morphine, naproxen, hydromorphone, vancomycin Cardiac Risk Factors: Hyperlipidemia, HTN, DM, FHX of CAD Previous Cardiac Procedures: PCI Exercise History: Physically active Meds Held (24 hrs): metoprolol, isosorbide Stress Test Details Stress Test: Exercise stress testing was performed using a Jose E protocol. HR Resting HR: 90 bpm Max Heart Rate (APMHR): 181 bpm Max HR Achieved: 169 bpm Target HR (85% APMHR): 153 bpm % of APMHR: 93 Recovery HR: 113 bpm BP Resting BP: 127/72 mmHg Max BP: 180/84 [place] [address] CARDIAC NUCLEAR IMAGING REPORT Name: ERASTO CULVER Room: [address]#: [id number] Admission: 08/28/19 Attend Phys: Jasson Rosario, Discharge: Date of : 80 Date of Service: 08/31/19 0743 Report #: [id number] ECG Resting ECG: Sinus Rhythm Stress ECG: Sinus Tachycardia ST Change: None Arrhythmia: None Recovery ECG: Sinus Rhythm Recovery ST Change: None Recovery Arrhythmia: None Clinical Reason for Termination: Chest pain/Anginal equivalent Exercise duration: 5 min 59 sec Exercise capacity: 7.05 METs Functional Aerobic Impairment 93% The patient described chest discomfort at peak exercise that resolved with rest. Stress ECG Conclusion Baseline twelve-lead EKG showed sinus rhythm with no significant ST segment or T wave abnormalities. EKGs obtained during and post exercise showed sinus rhythm and sinus tachycardia with no significant ST segment or T wave changes when compared to baseline. NM EXAM: Myocardial Perfusion REST/STRESS Resting Data Rest SPECT myocardial perfusion imaging was performed in supine position 30 minutes following the intravenous injection of 10.5 mCi of Tc-99m Sestamibi. Time of rest injection: 14:50 The images were gated to evaluate regional wall motion and calculate left ventricular ejection fraction. Administration Route: IV Administration Site: Other Exercise Stress At peak stress, the patient was injected intravenously with 32.47mCi of Tc-99m Sestamibi. Time of stress injection: 16;25 Administration Route: IV Administration Site: Other Heart Rate at time of stress injection: 169 bpm. Gated Stress SPECT was performed 30 minutes after stress injection. The images were gated to evaluate regional [place] [address] CARDIAC NUCLEAR IMAGING REPORT Name: ERASTO CULVER Room: [address]#: [id number] Admission: 08/28/19 Attend Phys: Jasson Rosario, Discharge: Date of : 80 Date of Service: 08/31/19 0743 Report #: [id number] left ventricular ejection fraction. Prone imaging was performed. Study Quality Study: Good Artifact: No artifact Study Data At rest, the left ventricular ejection fraction was 73%.. Post stress, the left ventricular ejection was 70%.. TID = 1.06. Perfusion Myocardial perfusion images obtained at rest and post exercise stress show uniform uptake of the radioisotope throughout the myocardium with no defect to suggest infarct or ischemia. Wall Motion Normal left ventricular wall motion. Nuclear Conclusion ECG Findings: negative for ischemia Clinical Findings: non-diagnostic Nuclear Findings: negative for ischemia Exercise Capacity: normal Left Ventricular Function: normal Risk Study: low Perfusion images show no defect to suggest infarct or ischemia. Left ventricular systolic function appears normal on gated studies. This is a low risk study. <Conclusion> Baseline twelve-lead EKG showed sinus rhythm with no significant ST segment or T wave abnormalities. EKGs obtained during and post exercise showed sinus rhythm and sinus tachycardia with no significant ST segment or T wave changes when compared to baseline. <ELECTRONICALLY SIGNED> By: Everett Morales MD, FACC 08/31/19 0743 0743 0743 Everett Morales MD, FACC /INF
[2019-08-31 09:16] VITALS: BP 114/74
[2019-08-31] MEDS ORDERED: PLAVIX 75 MG TA75 MG PO (10:05)
[2019-08-31 12:01] VITALS: BP 125/75
--- NOTE | 2019-08-31 12:54 | EKG ---
[place] [address] ELECTROCARDIOGRAM REPORT Name: ERASTO CULVER Room: [address] IN M.R.#: [id number] Admission: 08/28/19 Attend Phys: Jasson Rosario, Discharge: Date of : 80 Date of Service: 08/30/19 1745 Report #: [id number] THIS REPORT FOR: //name// [facility] Test Date: 2019-08-30 Test Time: 17:45:26 Pat Name: ERASTO CULVER Department: Room: [address] Gender: F Marketing Writer: KAIDEN : 1980 Requested By: Edmundo Gonzalez Order Number: [id number] Kingsley MD: Everett Morales Measurements Intervals [place] Rate: 99 P: 49 DE: 135 QRS: -17 QRSD: 86 T: 24 QT: 352 QTc: 452 Interpretive Statements Sinus rhythm Delayed R wave progression Compared to ECG 08/29/2019 22:28:23 No significant changes noted Electronically Signed On 08-31-2019 12:52:14 CDT by Everett Morales [email or web address] <ELECTRONICALLY SIGNED> By: Everett Morales MD, FACC 08/31/19 1252 1745 1745 Everett Morales MD, FAC /EPI
[2019-08-31 15:49] VITALS: BP 125/75
== END 2019-08-31 16:50 | disposition home or self-care (01) | DRG 637 ==
LOC: M.ERS 14:45 → M.TBA-ER 16:30 → M.ICU 16:30 → M.2W 08-30 08:44
PROVIDERS: Emergency Medicine Emergency Medical Services; Physician Assistant; ADMIT Internal Medicine; ATTEND Internal Medicine
DX: E10.10 Type 1 diabetes mellitus with ketoacidosis without coma (principal); N17.0 Acute kidney failure with tubular necrosis; I25.110 Atherosclerotic heart disease of native coronary artery with unstable angina pectoris; E10.40 Type 1 diabetes mellitus with diabetic neuropathy, unspecified; E10.43 Type 1 diabetes mellitus with diabetic autonomic (poly)neuropathy; K31.84 Gastroparesis; E03.9 Hypothyroidism, unspecified; F32.9 Major depressive disorder, single episode, unspecified; E86.9 Volume depletion, unspecified; E78.5 Hyperlipidemia, unspecified; Z90.49 Acquired absence of other specified parts of digestive tract; Z95.5 Presence of coronary angioplasty implant and graft; Z88.6 Allergy status to analgesic agent; Z88.1 Allergy status to other antibiotic agents; Z88.2 Allergy status to sulfonamides; Z88.8 Allergy status to other drugs, medicaments and biological substances; Z79.82 Long term (current) use of aspirin; Z79.899 Other long term (current) drug therapy